=== PATIENT | female | born 1930 | race Caucasian/White ===

== ENCOUNTER → 2018-02-18 | Outpatient (CLI) | payer MEDICARE | END | disposition home or self-care (01) | LOC: RAD 12:14 | PROVIDERS: ATTEND Student in an Organized Health Care Education/Training Program | DX: K22.4 Dyskinesia of esophagus (principal); R13.14 Dysphagia, pharyngoesophageal phase | CPT/HCPCS: 74220 ==

== ENCOUNTER → 2018-06-03 | Outpatient (CLI) | payer MEDICARE ==
[~2018-06-03] MED LIST: AMIO200T42 PO; AMOX-291 PO; APIX2.5T PO; ASPI-496 PO; CALC400T5 PO; CHOL10003 PO; CLOR7.5T PO; CYAN1TAB29 PO; EUCA1LOZ PO; FEXO180T15 PO; FLUT9.9S NS; FURO20TA3 PO; GABA300C10 PO; LEVO50TA5 PO; LOSA25TA25 PO; MELA10TA2 PO; MENT118G TP; TRAM50TA2 PO
== END | disposition home or self-care (01) ==
LOC: STAR 14:04
PROVIDERS: ATTEND Internal Medicine Gastroenterology
DX: Z01.818 Encounter for other preprocedural examination (principal); R13.19 Other dysphagia; I44.4 Left anterior fascicular block; Z88.5 Allergy status to narcotic agent; Z91.040 Latex allergy status
CPT/HCPCS: 93005

== ENCOUNTER 2018-06-10 09:00 | Day surgery (SDC) | payer MEDICARE ==
[~2018-06-10] VITALS: Ht 170.2 cm; Wt 81.3 kg
[2018-06-10 09:42] VITALS: BP 177/80
[2018-06-10] MEDS ORDERED: PROPOFOL 10 MG/ML, 50ML ONE (11:07)
[2018-06-10] MEDS ORDERED: FENTANYL PF 100 MCG/2ML IV PRN (11:30)
[2018-06-10] MEDS ORDERED: ONDANSETRON 2MG/ML, 2ML IV PRN (11:30)
[2018-06-10] MEDS ORDERED: ACETAMINOPHEN 325 MG TABLET PO PRN (11:30)
[2018-06-10] MEDS ORDERED: METOPROLOL 1 MG/ML, 5ML IV PRN (11:30)
== END 2018-06-10 12:55 | disposition home or self-care (01) ==
LOC: OUT 09:00
PROVIDERS: ATTEND Internal Medicine Gastroenterology
DX: K31.89 Other diseases of stomach and duodenum (principal); R13.14 Dysphagia, pharyngoesophageal phase; I10 Essential (primary) hypertension; E03.9 Hypothyroidism, unspecified; I25.10 Atherosclerotic heart disease of native coronary artery without angina pectoris; Z88.1 Allergy status to other antibiotic agents; Z88.5 Allergy status to narcotic agent; Z88.8 Allergy status to other drugs, medicaments and biological substances
CPT/HCPCS: 43248; J2704

== ENCOUNTER 2020-02-05 17:01 | Inpatient (IN) | payer MEDICARE ==
[~2020-02-05] VITALS: Ht 172.7 cm; Wt 87.9 kg
[~2020-02-05 17:01] MED LIST changes: +ALPR0.5T3 PO; +BISA10SU4 PR; -CLOR7.5T PO; +CLOR7.5T49 PO; +FERR-51 PO; +LEVO50TA PO; +ONDA4TAB13 PO; +PANT20TA4 PO; +POLY17PO5 PO; +ROPI0.254 PO; +SENN-193 PO
--- NOTE | 2020-02-05 17:30 | NUR ---
LATE ENTRY: BIB BY HOLLY FROM [facility] FOR INCREASE IN OXYGEN NEEDS. COVID+ 02/01. PER FACILITY PT. IS ON ROOM AIR BASELINE. TODAY STARTED TO REQUIRE OXYGEN. HOLLY WAS CONTACTED AND PLACED PT. ON 4L NASAL CANNULA. PT. STATES SHE FEELS WEAK AND HAS NOT HAD AN APPETITE. PT. IS RESTING IN GURNEY, EASILY AROUSABLE BUT DROWSY. MONITORS CONNECTED. WARM BLANKET PROVIDED. STATES NO NEEDS AT THIS TIME
--- NOTE | 2020-02-05 18:15 | NUR ---
PER DR GONZALEZ, ONE SET OF BLOOD CULTURES TO BE DRAWN.
[2020-02-05] MEDS ORDERED: CEFTRIAXONE PMX 1GM/50ML 50 ML IVPB ONE (18:30)
[2020-02-05] MEDS ORDERED: SODIUM CHLORIDE FLUSH 10ML SYR IVF ONE (18:30)
[2020-02-05] MEDS ORDERED: AZITHROMYCIN 500 MG in SODIUM CHLORIDE 0.9% 250 ML IV ONE (18:30)
[2020-02-05 18:42] LABS: BASOPHILS % (AUTO) 1 % (0-1); EOSINOPHILS % (AUTO) 1 % (1-7); LYMPHOCYTES % (AUTO) 25 % (22-44); MEAN CORPUSCULAR HEMOGLOBIN 28.2 pg (27.0-34.8); MEAN CORPUSCULAR HGB CONC 32.4 g/dL (32.4-35.8); MONOCYTES % (AUTO) 12 % (2-9); NEUTROPHILS % (AUTO) 62 % (42-75); PLATELET COUNT 166 x10^3/uL (130-400); RED BLOOD COUNT 4.63 x10^6/uL (3.82-5.3); RED CELL DISTRIBUTION WIDTH 16.2 % (9.6-15.2)
[2020-02-05 18:46] LABS: MD NO
[2020-02-05 18:47] LABS: ALANINE AMINOTRANSFERASE 23 U/L (12-78); ALBUMIN 3.3 g/dL (3.4-5.0); ANION GAP 5 mmol/L (5-15); CALCIUM 8.4 mg/dL (8.5-10.1); CHLORIDE 104 mmol/L (98-107); CREATININE 1.61 mg/dL (0.55-1.02)
[2020-02-05 18:49] LABS: ALKALINE PHOSPHATASE 59 U/L (45-117); BILIRUBIN,TOTAL 0.5 mg/dL (0.2-1.0); TOTAL PROTEIN 7.5 g/dL (6.4-8.2)
--- NOTE | 2020-02-05 19:00 | NUR ---
PT RESTING ON [facility]. EKG COMPLETE. VSS. NAD.
--- NOTE | 2020-02-05 19:38 | NUR ---
SON (ZAY) WOULD LIKE TO BE CALLED WITH ANY UPDATES. HE IS THE PT'S POA - [phone]
--- NOTE | 2020-02-05 19:48 | NUR ---
PT. RESTING ON [facility]. VSS. NAD. STATES NO NEEDS AT THIS TIME
--- NOTE | 2020-02-05 19:52 | NUR ---
ATTEMPTED TO TAKE PT. TO BED SIDE COMMODE. PT FEELING WEAK. PURWICK PLACED.
--- NOTE | 2020-02-05 19:55 | NUR ---
CONTACTED PT. SON FLORES (POA). UPDATED HIM ON PLAN OF CARE.
--- NOTE | 2020-02-05 20:31 | NUR ---
PT RESTING ON GURNEY. OKAY TO DRINK PER DR. GONZALEZ. PT PROVIDED WITH SPRITE PER HER CHOICE. UPDATED ON PLAN OF CARE. WARM BLANKETS PROVIDED. VSS. NAD.
--- NOTE | 2020-02-05 21:26 | NUR ---
PT. RESTING ON [facility]. VSS. NAD
[2020-02-05] MEDS ORDERED: ONDANSETRON ODT 4 MG PO PRN (21:30)
[2020-02-05] MEDS: MELATONIN 5 MG TABLET PO SCH (21:30)
[2020-02-05] MEDS: GABAPENTIN 300 MG CAPSULE PO SCH (21:30)
[2020-02-05] MEDS ORDERED: AZITHROMYCIN 500 MG in SODIUM CHLORIDE 0.9% 250 ML IV SCH (21:30)
[2020-02-05] MEDS ORDERED: POLYETHYLENE GLYCOL 17 GM PACKET PO PRN (21:30)
[2020-02-05] MEDS ORDERED: BISACODYL 10 MG SUPP PR PRN (21:30)
[2020-02-05] MEDS ORDERED: MENTHOL PO SCH (21:30)
[2020-02-05] MEDS ORDERED: GUAIFENESIN/DM 200-20MG, 10ML UDC PO PRN (21:30)
[2020-02-05] MEDS ORDERED: MENTHOL TP SCH (21:30)
[2020-02-05] MEDS: SODIUM CHLORIDE FLUSH 10ML SYR IVF SCH (21:30)
[2020-02-05] MEDS ORDERED: CALCIUM CARBONATE 500 MG TAB.CHEW PO PRN (21:30)
[2020-02-05] MEDS: CEFTRIAXONE PMX 1GM/50ML 50 ML IV SCH (21:30)
[2020-02-05] MEDS ORDERED: EUCALYPTUS PO SCH (21:30)
[2020-02-05] MEDS ORDERED: HEPARIN 5,000 UNITS/ML, 1ML ONE (21:37)
[2020-02-05] MEDS ORDERED: ASCORBIC ACID 500 MG TABLET ONE (21:38)
[2020-02-05] MEDS ORDERED: CEFTRIAXONE PMX 1GM/50ML 0 ML ONE (21:38)
[2020-02-05] MEDS: HEPARIN 5,000 UNITS/ML, 1ML SQ SCH (21:47)
[2020-02-05] MEDS: ASCORBIC ACID 500 MG TABLET PO SCH (21:47)
--- NOTE | 2020-02-05 22:00 | NUR ---
ORDERED MEDICATIONS ADMINISTERED. PT RESTING IN [facility]. VSS. NAD. REPORT GIVEN TO CLAUDINE
--- NOTE | 2020-02-05 22:08 | NUR ---
TP RN: Hospital bed requested.
[2020-02-05] MEDS: FERROUS SULFATE 325 MG TABLET PO SCH (22:18)
[2020-02-06] VITALS (7 sets, daily range): BP systolic 116–165; BP diastolic 57–75
[2020-02-06] MEDS ORDERED: ETHYL CHLORIDE 100% TP PRN (01:30)
[2020-02-06] MEDS: HEPARIN 5,000 UNITS/ML, 1ML SQ SCH ×3 (05:53→20:14)
[2020-02-06] MEDS: LEVOTHYROXINE 50 MCG TABLET PO SCH (05:53)
[2020-02-06] MEDS: PANTOPRAZOLE 20MG TABLET PO SCH (05:53)
[2020-02-06 06:25] LABS: BASOPHILS % (AUTO) 1 % (0-1); EOSINOPHILS % (AUTO) 1 % (1-7); LYMPHOCYTES % (AUTO) 25 % (22-44); MEAN CORPUSCULAR HEMOGLOBIN 27.8 pg (27.0-34.8); MEAN CORPUSCULAR HGB CONC 32.3 g/dL (32.4-35.8); MEAN PLATELET VOLUME 9.4 fL (7.4-10.4); MONOCYTES % (AUTO) 9 % (2-9); NEUTROPHILS % (AUTO) 64 % (42-75); PLATELET COUNT 185 x10^3/uL (130-400); RED BLOOD COUNT 4.67 x10^6/uL (3.82-5.3); RED CELL DISTRIBUTION WIDTH 16.1 % (9.6-15.2)
[2020-02-06 06:27] LABS: MD NO
[2020-02-06 06:34] LABS: ANION GAP 4 mmol/L (5-15); CALCIUM 8.6 mg/dL (8.5-10.1); CHLORIDE 106 mmol/L (98-107)
[2020-02-06] MEDS ORDERED: ROPINIROLE 0.5MG TABLET ONE (08:50)
[2020-02-06] MEDS: FLUTICASONE NASAL SPRAY 16GM NAS SCH (08:59)
[2020-02-06] MEDS: SODIUM CHLORIDE FLUSH 10ML SYR IVF SCH ×2 (08:59→20:16)
[2020-02-06] MEDS: ROPINIROLE 0.25MG TABLET PO SCH (09:00)
[2020-02-06] MEDS: CYANOCOBALAMIN PO SCH (09:00)
[2020-02-06] MEDS: ZINC SULFATE 220 MG CAPSULE PO SCH (09:00)
[2020-02-06] MEDS: SENNA/DOCUSATE TABLET PO SCH (09:00)
[2020-02-06] MEDS: FOLIC ACID PO SCH (09:00)
[2020-02-06] MEDS: ASCORBIC ACID 500 MG TABLET PO SCH ×2 (09:01→20:15)
[2020-02-06] MEDS: LOSARTAN 25MG TABLET PO SCH (09:01)
[2020-02-06] MEDS: CHOLECALCIFEROL 1,000 UNIT TABLET PO SCH (09:01)
[2020-02-06] MEDS: AMIODARONE 200 MG TABLET PO SCH (09:01)
[2020-02-06] MEDS: GABAPENTIN 300 MG CAPSULE PO SCH ×3 (09:02→20:15)
[2020-02-06] MEDS: FERROUS SULFATE 325 MG TABLET PO SCH ×3 (09:02→20:15)
[2020-02-06] MEDS: CLORAZEPATE 7.5 MG TABLET PO SCH (11:31)
[2020-02-06] MEDS: ACETAMINOPHEN 325 MG TABLET PO PRN ×2 (11:33→20:15)
[2020-02-06] MEDS: CEFTRIAXONE PMX 1GM/50ML 50 ML IV SCH (18:06)
[2020-02-06] MEDS ORDERED: PHARMACY INSTRUCTION MC PRN (19:30)
[2020-02-06] MEDS: DOXYCYCLINE 100 MG in DEXTROSE 5% 250 ML IV SCH (20:15)
[2020-02-06] MEDS: MELATONIN 5 MG TABLET PO SCH (20:15)
[2020-02-06] MEDS ORDERED: REMDESIVIR 200 MG in SODIUM CHLORIDE 0.9% 250 ML IVPB ONE (21:00)
[2020-02-07 00:02] VITALS: BP 121/66
[2020-02-07 04:12] LABS: BASOPHILS % (AUTO) 1 % (0-1); EOSINOPHILS % (AUTO) 1 % (1-7); LYMPHOCYTES % (AUTO) 31 % (22-44); MEAN CORPUSCULAR HEMOGLOBIN 27.7 pg (27.0-34.8); MEAN CORPUSCULAR HGB CONC 32.3 g/dL (32.4-35.8); MEAN PLATELET VOLUME 9.4 fL (7.4-10.4); MONOCYTES % (AUTO) 10 % (2-9); NEUTROPHILS % (AUTO) 58 % (42-75); PLATELET COUNT 190 x10^3/uL (130-400); RED BLOOD COUNT 4.46 x10^6/uL (3.82-5.3); RED CELL DISTRIBUTION WIDTH 16.3 % (9.6-15.2)
[2020-02-07 04:14] LABS: MD NO
[2020-02-07 04:27] LABS: ALBUMIN 2.6 g/dL (3.4-5.0); ANION GAP 5 mmol/L (5-15); CALCIUM 8.1 mg/dL (8.5-10.1); CHLORIDE 105 mmol/L (98-107)
[2020-02-07 04:32] LABS: ALANINE AMINOTRANSFERASE 19 U/L (12-78); ALKALINE PHOSPHATASE 53 U/L (45-117); BILIRUBIN,TOTAL 0.3 mg/dL (0.2-1.0); CREATININE 1.78 mg/dL (0.55-1.02); TOTAL PROTEIN 6.4 g/dL (6.4-8.2)
[2020-02-07] MEDS: LEVOTHYROXINE 50 MCG TABLET PO SCH (05:08)
[2020-02-07] MEDS: ACETAMINOPHEN 325 MG TABLET PO PRN ×3 (05:08→20:10)
[2020-02-07] MEDS: PANTOPRAZOLE 20MG TABLET PO SCH (05:08)
[2020-02-07] MEDS: HEPARIN 5,000 UNITS/ML, 1ML SQ SCH ×3 (05:08→22:48)
[2020-02-07 07:17] VITALS: BP 150/68
[2020-02-07] MEDS: FOLIC ACID PO SCH (08:43)
[2020-02-07] MEDS: CYANOCOBALAMIN PO SCH (08:43)
[2020-02-07] MEDS: SENNA/DOCUSATE TABLET PO SCH (09:00)
[2020-02-07] MEDS: DOXYCYCLINE 100 MG in DEXTROSE 5% 250 ML IV SCH ×2 (10:18→22:47)
[2020-02-07] MEDS: SODIUM CHLORIDE FLUSH 10ML SYR IVF SCH ×2 (10:18→22:48)
[2020-02-07] MEDS: CLORAZEPATE 7.5 MG TABLET PO SCH (10:18)
[2020-02-07] MEDS: FLUTICASONE NASAL SPRAY 16GM NAS SCH (10:18)
[2020-02-07] MEDS: GABAPENTIN 300 MG CAPSULE PO SCH ×3 (10:19→20:10)
[2020-02-07] MEDS: LOSARTAN 25MG TABLET PO SCH (10:19)
[2020-02-07] MEDS: ZINC SULFATE 220 MG CAPSULE PO SCH (10:19)
[2020-02-07] MEDS: AMIODARONE 200 MG TABLET PO SCH (10:19)
[2020-02-07] MEDS: FERROUS SULFATE 325 MG TABLET PO SCH ×3 (10:19→20:11)
[2020-02-07] MEDS: CHOLECALCIFEROL 1,000 UNIT TABLET PO SCH (10:19)
[2020-02-07] MEDS: ROPINIROLE 0.25MG TABLET PO SCH (10:19)
[2020-02-07] MEDS: ASCORBIC ACID 500 MG TABLET PO SCH ×2 (10:19→20:10)
[2020-02-07 12:47] VITALS: BP 159/86
[2020-02-07] MEDS: CEFTRIAXONE PMX 1GM/50ML 50 ML IV SCH (17:42)
[2020-02-07 20:06] VITALS: BP 168/74
[2020-02-07] MEDS: MELATONIN 5 MG TABLET PO SCH (20:10)
[2020-02-07] MEDS ORDERED: REMDESIVIR 100 MG in SODIUM CHLORIDE 0.9% 250 ML IVPB SCH (21:00)
[2020-02-08] MEDS: REMDESIVIR 50 MG in SODIUM CHLORIDE 0.9% 250 ML IVPB SCH ×2 (00:45→23:37)
[2020-02-08 00:50] VITALS: BP 149/80
[2020-02-08] MEDS: ACETAMINOPHEN 325 MG TABLET PO PRN ×3 (00:58→19:45)
[2020-02-08 03:10] LABS: BASOPHILS % (AUTO) 1 % (0-1); EOSINOPHILS % (AUTO) 1 % (1-7); LYMPHOCYTES % (AUTO) 23 % (22-44); MEAN CORPUSCULAR HEMOGLOBIN 28.3 pg (27.0-34.8); MEAN CORPUSCULAR HGB CONC 33.1 g/dL (32.4-35.8); MEAN PLATELET VOLUME 9.2 fL (7.4-10.4); MONOCYTES % (AUTO) 11 % (2-9); NEUTROPHILS % (AUTO) 65 % (42-75); PLATELET COUNT 237 x10^3/uL (130-400); RED CELL DISTRIBUTION WIDTH 15.8 % (9.6-15.2)
[2020-02-08 03:11] LABS: ALBUMIN 2.6 g/dL (3.4-5.0); ANION GAP 5 mmol/L (5-15); CALCIUM 8.4 mg/dL (8.5-10.1); CHLORIDE 106 mmol/L (98-107)
[2020-02-08 03:15] LABS: ALANINE AMINOTRANSFERASE 19 U/L (12-78); ALKALINE PHOSPHATASE 57 U/L (45-117); BILIRUBIN,TOTAL 0.3 mg/dL (0.2-1.0); CREATININE 1.48 mg/dL (0.55-1.02); TOTAL PROTEIN 6.6 g/dL (6.4-8.2)
[2020-02-08 03:17] LABS: MD NO
[2020-02-08] MEDS: PANTOPRAZOLE 20MG TABLET PO SCH (05:53)
[2020-02-08] MEDS: LEVOTHYROXINE 50 MCG TABLET PO SCH (05:54)
[2020-02-08] MEDS: HEPARIN 5,000 UNITS/ML, 1ML SQ SCH ×3 (05:54→23:37)
[2020-02-08] MEDS: SENNA/DOCUSATE TABLET PO SCH (07:56)
[2020-02-08] MEDS: FOLIC ACID PO SCH (07:56)
[2020-02-08] MEDS: CYANOCOBALAMIN PO SCH (07:56)
[2020-02-08 08:14] VITALS: BP 134/73
[2020-02-08] MEDS: ROPINIROLE 0.25MG TABLET PO SCH (09:10)
[2020-02-08] MEDS: AMIODARONE 200 MG TABLET PO SCH (09:10)
[2020-02-08] MEDS: CHOLECALCIFEROL 1,000 UNIT TABLET PO SCH (09:10)
[2020-02-08] MEDS: FERROUS SULFATE 325 MG TABLET PO SCH ×3 (09:10→19:28)
[2020-02-08] MEDS: LOSARTAN 25MG TABLET PO SCH (09:10)
[2020-02-08] MEDS: GABAPENTIN 300 MG CAPSULE PO SCH ×3 (09:10→19:28)
[2020-02-08] MEDS: ZINC SULFATE 220 MG CAPSULE PO SCH (09:10)
[2020-02-08] MEDS: DOXYCYCLINE 100 MG in DEXTROSE 5% 250 ML IV SCH ×2 (09:10→21:30)
[2020-02-08] MEDS: FLUTICASONE NASAL SPRAY 16GM NAS SCH (09:11)
[2020-02-08] MEDS: ASCORBIC ACID 500 MG TABLET PO SCH ×2 (09:11→19:28)
[2020-02-08] MEDS: SODIUM CHLORIDE FLUSH 10ML SYR IVF SCH ×2 (09:11→19:29)
[2020-02-08] MEDS: CLORAZEPATE 7.5 MG TABLET PO SCH (10:21)
[2020-02-08 12:44] VITALS: BP 167/78
[2020-02-08] MEDS: CEFTRIAXONE PMX 1GM/50ML 50 ML IV SCH (18:09)
[2020-02-08 18:38] VITALS: BP 132/76
[2020-02-08] MEDS: MELATONIN 5 MG TABLET PO SCH (19:28)
[2020-02-09 01:19] VITALS: BP 127/69
[2020-02-09] MEDS: PANTOPRAZOLE 20MG TABLET PO SCH (04:48)
[2020-02-09] MEDS: LEVOTHYROXINE 50 MCG TABLET PO SCH (04:49)
[2020-02-09 05:16] LABS: ALBUMIN 2.5 g/dL (3.4-5.0); ANION GAP 8 mmol/L (5-15); CALCIUM 8.6 mg/dL (8.5-10.1); CHLORIDE 106 mmol/L (98-107)
[2020-02-09 05:20] LABS: ALANINE AMINOTRANSFERASE 17 U/L (12-78); ALKALINE PHOSPHATASE 58 U/L (45-117); BILIRUBIN,TOTAL 0.3 mg/dL (0.2-1.0); CREATININE 1.62 mg/dL (0.55-1.02); TOTAL PROTEIN 6.7 g/dL (6.4-8.2)
[2020-02-09 06:43] LABS: BASOPHILS % (AUTO) 0 % (0-1); EOSINOPHILS % (AUTO) 1 % (1-7); LYMPHOCYTES % (AUTO) 24 % (22-44); MEAN CORPUSCULAR HEMOGLOBIN 28.1 pg (27.0-34.8); MEAN CORPUSCULAR HGB CONC 32.7 g/dL (32.4-35.8); MEAN PLATELET VOLUME 9.1 fL (7.4-10.4); MONOCYTES % (AUTO) 12 % (2-9); NEUTROPHILS % (AUTO) 63 % (42-75); PLATELET COUNT 254 x10^3/uL (130-400); RED BLOOD COUNT 4.78 x10^6/uL (3.82-5.3); RED CELL DISTRIBUTION WIDTH 16.4 % (9.6-15.2)
[2020-02-09 06:45] LABS: MD NO
[2020-02-09 06:59] VITALS: BP 164/68
[2020-02-09] MEDS: CYANOCOBALAMIN PO SCH (09:00)
[2020-02-09] MEDS: DOXYCYCLINE 100 MG in DEXTROSE 5% 250 ML IV SCH ×3 (09:00→20:23)
[2020-02-09] MEDS: FOLIC ACID PO SCH (09:00)
[2020-02-09] MEDS: SODIUM CHLORIDE FLUSH 10ML SYR IVF SCH ×2 (09:00→20:04)
[2020-02-09] MEDS: ROPINIROLE 0.25MG TABLET PO SCH (09:50)
[2020-02-09] MEDS: ASCORBIC ACID 500 MG TABLET PO SCH ×2 (09:50→20:04)
[2020-02-09] MEDS: AMIODARONE 200 MG TABLET PO SCH (09:50)
[2020-02-09] MEDS: GABAPENTIN 300 MG CAPSULE PO SCH ×3 (09:50→20:03)
[2020-02-09] MEDS: FLUTICASONE NASAL SPRAY 16GM NAS SCH (09:51)
[2020-02-09] MEDS: SENNA/DOCUSATE TABLET PO SCH (09:51)
[2020-02-09] MEDS: FERROUS SULFATE 325 MG TABLET PO SCH ×3 (09:51→20:04)
[2020-02-09] MEDS: CHOLECALCIFEROL 1,000 UNIT TABLET PO SCH (09:51)
[2020-02-09] MEDS: ZINC SULFATE 220 MG CAPSULE PO SCH (09:51)
[2020-02-09] MEDS: LOSARTAN 25MG TABLET PO SCH (09:51)
[2020-02-09] MEDS: HEPARIN 5,000 UNITS/ML, 1ML SQ SCH ×2 (09:55→17:32)
[2020-02-09] MEDS: CLORAZEPATE 7.5 MG TABLET PO SCH (12:26)
[2020-02-09 14:58] VITALS: BP 149/71
[2020-02-09] MEDS: BENZONATATE 100 MG CAPSULE PO SCH ×2 (17:32→20:03)
[2020-02-09] MEDS: CEFTRIAXONE PMX 1GM/50ML 50 ML IV SCH (18:07)
[2020-02-09] MEDS: MELATONIN 5 MG TABLET PO SCH (20:04)
[2020-02-09 20:12] VITALS: BP_SYST 153; BP_SYST 175; BP_DIAS 71; BP_DIAS 74
[2020-02-09] MEDS: REMDESIVIR 50 MG in SODIUM CHLORIDE 0.9% 250 ML IVPB SCH (23:17)
[2020-02-10 00:09] VITALS: BP 161/72
[2020-02-10] MEDS: LEVOTHYROXINE 50 MCG TABLET PO SCH (05:01)
[2020-02-10] MEDS: HEPARIN 5,000 UNITS/ML, 1ML SQ SCH ×3 (05:01→18:02)
[2020-02-10] MEDS: PANTOPRAZOLE 20MG TABLET PO SCH (05:01)
[2020-02-10 06:07] LABS: ALBUMIN 2.4 g/dL (3.4-5.0); ANION GAP 7 mmol/L (5-15); CALCIUM 8.4 mg/dL (8.5-10.1); CHLORIDE 107 mmol/L (98-107)
[2020-02-10 06:11] LABS: ALANINE AMINOTRANSFERASE 16 U/L (12-78); ALKALINE PHOSPHATASE 64 U/L (45-117); BILIRUBIN,TOTAL 0.4 mg/dL (0.2-1.0); CREATININE 1.46 mg/dL (0.55-1.02); TOTAL PROTEIN 6.5 g/dL (6.4-8.2)
[2020-02-10 07:25] VITALS: BP 154/76
[2020-02-10] MEDS: ZINC SULFATE 220 MG CAPSULE PO SCH (08:47)
[2020-02-10] MEDS: ROPINIROLE 0.25MG TABLET PO SCH (08:47)
[2020-02-10] MEDS: SENNA/DOCUSATE TABLET PO SCH (08:48)
[2020-02-10] MEDS: GABAPENTIN 300 MG CAPSULE PO SCH ×3 (08:48→20:54)
[2020-02-10] MEDS: FERROUS SULFATE 325 MG TABLET PO SCH ×3 (08:48→20:54)
[2020-02-10] MEDS: CHOLECALCIFEROL 1,000 UNIT TABLET PO SCH (08:48)
[2020-02-10] MEDS: ASCORBIC ACID 500 MG TABLET PO SCH ×2 (08:48→20:53)
[2020-02-10] MEDS: BENZONATATE 100 MG CAPSULE PO SCH ×3 (08:48→20:57)
[2020-02-10] MEDS: FLUTICASONE NASAL SPRAY 16GM NAS SCH (08:49)
[2020-02-10] MEDS: SODIUM CHLORIDE FLUSH 10ML SYR IVF SCH ×2 (08:49→21:00)
[2020-02-10] MEDS: LOSARTAN 25MG TABLET PO SCH (08:49)
[2020-02-10] MEDS: AMIODARONE 200 MG TABLET PO SCH (08:49)
[2020-02-10] MEDS: FOLIC ACID PO SCH (08:50)
[2020-02-10] MEDS: CYANOCOBALAMIN PO SCH (08:50)
[2020-02-10] MEDS: ACETAMINOPHEN 325 MG TABLET PO PRN (10:04)
[2020-02-10] MEDS: CLORAZEPATE 7.5 MG TABLET PO SCH ×3 (10:04→16:39)
[2020-02-10] MEDS: DOXYCYCLINE 100MG TABLET PO SCH ×2 (10:08→20:54)
[2020-02-10 12:26] VITALS: BP 136/79
[2020-02-10] MEDS: CEFTRIAXONE PMX 1GM/50ML 50 ML IV SCH (18:02)
[2020-02-10 19:41] VITALS: BP 127/58
[2020-02-10] MEDS: MELATONIN 5 MG TABLET PO SCH (20:56)
[2020-02-10] MEDS: REMDESIVIR 50 MG in SODIUM CHLORIDE 0.9% 250 ML IVPB SCH (23:51)
[2020-02-11] MEDS: HEPARIN 5,000 UNITS/ML, 1ML SQ SCH ×3 (02:36→17:28)
[2020-02-11] MEDS: PANTOPRAZOLE 20MG TABLET PO SCH (05:31)
[2020-02-11] MEDS: LEVOTHYROXINE 50 MCG TABLET PO SCH (05:32)
[2020-02-11 06:40] VITALS: BP 146/69
[2020-02-11] MEDS: ACETAMINOPHEN 325 MG TABLET PO PRN ×2 (07:16→23:27)
[2020-02-11] MEDS: FOLIC ACID PO SCH (08:34)
[2020-02-11] MEDS: CYANOCOBALAMIN PO SCH (08:34)
[2020-02-11] MEDS: AMIODARONE 200 MG TABLET PO SCH (08:39)
[2020-02-11] MEDS: ZINC SULFATE 220 MG CAPSULE PO SCH (08:39)
[2020-02-11] MEDS: DOXYCYCLINE 100MG TABLET PO SCH ×2 (08:39→21:31)
[2020-02-11] MEDS: BENZONATATE 100 MG CAPSULE PO SCH ×3 (08:39→21:32)
[2020-02-11] MEDS: ASCORBIC ACID 500 MG TABLET PO SCH ×2 (08:40→21:31)
[2020-02-11] MEDS: CHOLECALCIFEROL 1,000 UNIT TABLET PO SCH (08:40)
[2020-02-11] MEDS: FERROUS SULFATE 325 MG TABLET PO SCH ×3 (08:40→21:32)
[2020-02-11] MEDS: GABAPENTIN 300 MG CAPSULE PO SCH ×3 (08:40→21:32)
[2020-02-11] MEDS: LOSARTAN 25MG TABLET PO SCH (08:40)
[2020-02-11] MEDS: SENNA/DOCUSATE TABLET PO SCH (08:40)
[2020-02-11] MEDS: ROPINIROLE 0.25MG TABLET PO SCH (08:40)
[2020-02-11] MEDS: FLUTICASONE NASAL SPRAY 16GM NAS SCH (08:41)
[2020-02-11] MEDS: SODIUM CHLORIDE FLUSH 10ML SYR IVF SCH ×2 (09:00→21:00)
[2020-02-11 09:20] LABS: ANION GAP 6 mmol/L (5-15); CALCIUM 8.4 mg/dL (8.5-10.1); CHLORIDE 107 mmol/L (98-107); CREATININE 1.43 mg/dL (0.55-1.02)
[2020-02-11] MEDS: CLORAZEPATE 7.5 MG TABLET PO SCH (10:18)
[2020-02-11 12:09] VITALS: BP 146/69
[2020-02-11] MEDS: CEFTRIAXONE PMX 1GM/50ML 50 ML IV SCH (18:11)
[2020-02-11 19:09] VITALS: BP 155/71
[2020-02-11] MEDS: MELATONIN 5 MG TABLET PO SCH (21:32)
[2020-02-12 03:52] VITALS: BP 165/73
[2020-02-12] MEDS: HEPARIN 5,000 UNITS/ML, 1ML SQ SCH ×2 (05:27→12:01)
[2020-02-12] MEDS: LEVOTHYROXINE 50 MCG TABLET PO SCH (05:27)
[2020-02-12] MEDS: PANTOPRAZOLE 20MG TABLET PO SCH (05:27)
[2020-02-12 05:49] LABS: BASOPHILS % (AUTO) 0 % (0-1); EOSINOPHILS % (AUTO) 1 % (1-7); LYMPHOCYTES % (AUTO) 14 % (22-44); MEAN CORPUSCULAR HEMOGLOBIN 27.4 pg (27.0-34.8); MEAN CORPUSCULAR HGB CONC 32.3 g/dL (32.4-35.8); MEAN PLATELET VOLUME 9.1 fL (7.4-10.4); MONOCYTES % (AUTO) 12 % (2-9); NEUTROPHILS % (AUTO) 73 % (42-75); PLATELET COUNT 374 x10^3/uL (130-400); RED BLOOD COUNT 4.33 x10^6/uL (3.82-5.3)
[2020-02-12 06:03] LABS: ANION GAP 4 mmol/L (5-15); CALCIUM 8.5 mg/dL (8.5-10.1); CHLORIDE 107 mmol/L (98-107)
[2020-02-12 06:05] LABS: CREATININE 1.47 mg/dL (0.55-1.02)
[2020-02-12 06:16] LABS: MD NO
[2020-02-12 06:48] VITALS: BP 131/70
[2020-02-12] MEDS: FOLIC ACID PO SCH (09:00)
[2020-02-12] MEDS: CYANOCOBALAMIN PO SCH (09:00)
[2020-02-12] MEDS: ROPINIROLE 0.25MG TABLET PO SCH (09:24)
[2020-02-12] MEDS: ZINC SULFATE 220 MG CAPSULE PO SCH (09:24)
[2020-02-12] MEDS: CHOLECALCIFEROL 1,000 UNIT TABLET PO SCH (09:24)
[2020-02-12] MEDS: FERROUS SULFATE 325 MG TABLET PO SCH ×2 (09:24→16:25)
[2020-02-12] MEDS: AMIODARONE 200 MG TABLET PO SCH (09:24)
[2020-02-12] MEDS: GABAPENTIN 300 MG CAPSULE PO SCH ×2 (09:24→16:25)
[2020-02-12] MEDS: DOXYCYCLINE 100MG TABLET PO SCH (09:24)
[2020-02-12] MEDS: ASCORBIC ACID 500 MG TABLET PO SCH (09:24)
[2020-02-12] MEDS: FLUTICASONE NASAL SPRAY 16GM NAS SCH (09:25)
[2020-02-12] MEDS: BENZONATATE 100 MG CAPSULE PO SCH ×2 (09:25→16:25)
[2020-02-12] MEDS: SODIUM CHLORIDE FLUSH 10ML SYR IVF SCH (09:25)
[2020-02-12] MEDS: SENNA/DOCUSATE TABLET PO SCH (09:25)
[2020-02-12] MEDS: LOSARTAN 25MG TABLET PO SCH (09:25)
[2020-02-12 11:59] VITALS: BP 146/79
[2020-02-12] MEDS: ACETAMINOPHEN 325 MG TABLET PO PRN (12:01)
[2020-02-12] MEDS: CLORAZEPATE 7.5 MG TABLET PO SCH (12:01)
[2020-02-12] MEDS ORDERED: METH4TAB2 PO (17:08)
[2020-02-12] MEDS: CEFTRIAXONE PMX 1GM/50ML 50 ML IV SCH (17:39)
== END 2020-02-12 18:25 | DRG 177 ==
LOC: ED 18:20 → EDIP 20:24 → 3N 02-06 00:30
PROVIDERS: ADMIT Family Medicine; ATTEND Internal Medicine
PROC: XW033E5 Introduction of Remdesivir Anti-infective into Peripheral Vein, Percutaneous Approach, New Technology Group 5 (ICD-10-PCS; principal; 2020-02-06)
DX: U07.1 COVID-19 (principal); J12.89 Other viral pneumonia; J96.01 Acute respiratory failure with hypoxia; N17.0 Acute kidney failure with tubular necrosis; D68.69 Other thrombophilia; I48.20 Chronic atrial fibrillation, unspecified; K56.609 Unspecified intestinal obstruction, unspecified as to partial versus complete obstruction; C50.912 Malignant neoplasm of unspecified site of left female breast; E03.9 Hypothyroidism, unspecified; E55.9 Vitamin D deficiency, unspecified; E78.5 Hyperlipidemia, unspecified; H26.9 Unspecified cataract; H91.90 Unspecified hearing loss, unspecified ear; I10 Essential (primary) hypertension; M79.2 Neuralgia and neuritis, unspecified; Z96.641 Presence of right artificial hip joint; Z66 Do not resuscitate; Z74.01 Bed confinement status; Z85.3 Personal history of malignant neoplasm of breast; Z85.828 Personal history of other malignant neoplasm of skin; Z90.12 Acquired absence of left breast and nipple; Z90.49 Acquired absence of other specified parts of digestive tract; Z90.710 Acquired absence of both cervix and uterus; Z95.3 Presence of xenogenic heart valve; Z99.3 Dependence on wheelchair; Z88.5 Allergy status to narcotic agent; Z88.1 Allergy status to other antibiotic agents; Z88.8 Allergy status to other drugs, medicaments and biological substances; Z91.040 Latex allergy status
CPT/HCPCS: 36415; 71045; 80048; 80053; 83605; 84145; 85025; 85379; 87040; 93005; 96365; 96368; 99285; G0378; J0456; J0696; J1644; J7060; J7050